=== PATIENT | male | born 1955 | race Caucasian/White ===

== ENCOUNTER 2023-09-21 01:05 | Emergency (ER) | payer BC ==
[2023-09-21] MEDS ORDERED: Magnesium Citrate Solution 296 ML Bottle PO ONE (02:37)
== END 2023-09-21 02:51 | disposition home or self-care (01) ==
LOC: JD.ED 01:05
DX: K59.09 Other constipation (principal); Z88.6 Allergy status to analgesic agent
CPT/HCPCS: 74018; 74018-26; 99283

== ENCOUNTER 2024-06-10 02:27 | Day surgery (SDC) | payer OTHER, MEDICARE ==
[2024-06-10 03:38] LABS: BASOPHILS ABSOLUTE AUTO 0.1 K/mm3 (0.0-0.2); BASOPHILS PERCENT AUTO 0.6 % (0.0-1.0); EOSINOPHILS ABSOLUTE AUTO 0.2 K/mm3 (0.0-0.4); EOSINOPHILS PERCENT AUTO 2.5 % (0.0-6.0); HEMATOCRIT 48.4 % (42.0-52.0); IMMATURE GRAN ABSOLUTE AUTO 0.03 K/mm3 (0.00-0.05); IMMATURE GRAN PERCENT AUTO 0.3 % (0.0-0.4); LYMPHOCYTES ABSOLUTE AUTO 2.1 K/mm3 (1.0-4.8); LYMPHOCYTES PERCENT AUTO 21.3 % (24.0-44.0); MEAN CORPUSCULAR HEMOGLOBIN 31.6 pg (28.0-32.0); MEAN CORPUSCULAR HGB CONC 33.1 g/dl (32.0-36.0); MEAN CORPUSCULAR VOLUME 95.5 fl (83.0-99.0); MONOCYTES ABSOLUTE AUTO 0.9 K/mm3 (0.0-0.8); MONOCYTES PERCENT AUTO 8.8 % (0.0-8.0); NEUTROPHILS ABSOLUTE AUTO 6.5 K/mm3 (1.8-7.7); NEUTROPHILS PERCENT AUTO 66.5 % (41.0-71.0); PLATELET COUNT,PLT 260 K/mm3 (150-400); RED BLOOD CELL COUNT 5.07 M/mm3 (4.52-5.90); WHITE BLOOD CELL COUNT,WBC 9.78 K/mm3 (3.9-11.3)
[2024-06-10 03:39] LABS: APPEARANCE,URINE CLEAR (Clear); BILIRUBIN,URINE NEGATIVE (Negative); COLOR,URINE YELLOW (Yellow); GLUCOSE,URINE 2+ (Negative); KETONES,URINE NEGATIVE (Negative); LEUKOCYTE ESTERASE,URINE NEGATIVE (Negative); NITRITE,URINE NEGATIVE (Negative); OCCULT BLOOD,URINE TRACE-INTACT (Negative); PH,URINE 6.5 (5.0-8.0); PROTEIN,URINE 1+ (Negative); UROBILINOGEN,URINE 0.2 (0.2-1.0)
[2024-06-10] MEDS: Sodium Chloride 0.9% 10 ML Syringe FLUSH PRN (03:40)
[2024-06-10] MEDS: Sodium Chloride 0.9% 1,000 ML IV ONE (03:40)
[2024-06-10] MEDS: Pantoprazole 40 MG Vial IVPUSH ONE (03:41)
[2024-06-10 03:59] LABS: A/G RATIO 1.2 (1-2); ALBUMIN 3.8 g/dl (3.4-5.0); ANION GAP 14.8 (5-15); BILIRUBIN TOTAL 0.3 mg/dL (0.2-1.0); CALCIUM 8.7 mg/dL (8.5-10.1); CREATININE 0.8 mg/dL (0.7-1.3); EST CRCL DRUG DOSING (CG) 83.13 mL/min; POTASSIUM,K 3.8 mEq/L (3.5-5.1); PROTEIN TOTAL,TP 7.1 g/dl (6.4-8.2)
[2024-06-10 04:16] LABS: BACTERIA,URINE NOT SEEN /hpf (FEW); EPITHELIAL CELLS,URINE NOT SEEN /hpf (0-5); MUCUS,URINE NOT SEEN /hpf (FEW); RBC,URINE 0-5 /hpf (0-5); WBC,URINE 0-5 /hpf (0-5)
[2024-06-10] MEDS: Sodium Chloride 0.9% 1,000 ML IV SCH (05:59)
[2024-06-10] MEDS: Piperacillin/Tazobactam 4.5 GM in Water For Injection, Sterile 20 ML IV ONE (06:01)
[2024-06-10] MEDS: Piperacillin/Tazobactam 4.5 GM in Sodium Chloride 0.9% 100 ML IV ONE (06:05)
[2024-06-10] MEDS ORDERED: Propofol 200 MG/20 ML SDV ONE (07:34)
[2024-06-10] MEDS ORDERED: fentaNYL 250 MCG/5 ML SDV ONE (07:34)
[2024-06-10] MEDS ORDERED: Midazolam 1 MG/ML 2 ML SDV ONE (07:34)
[2024-06-10] MEDS ORDERED: ceFAZolin 2 GM Vial ONE (07:35)
[2024-06-10] MEDS ORDERED: Sugammadex Sodium 200 MG/2 ML VIAL IV ONE (07:35)
[2024-06-10] MEDS ORDERED: Ketorolac 30 MG/ML SDV ONE (07:35)
[2024-06-10] MEDS ORDERED: Dexamethasone 4 MG/ML 5 ML MDV ONE (07:35)
[2024-06-10] MEDS ORDERED: Ondansetron 4 MG/2 ML SDV ONE (07:35)
[2024-06-10] MEDS ORDERED: Rocuronium 50 MG/5 ML Vial ONE ×2 (07:35→10:48)
[2024-06-10] MEDS ORDERED: Lidocaine 1% 5 ML VIAL ONE (07:35)
[2024-06-10] MEDS ORDERED: HYDROmorphone 0.5 MG/0.5 ML Syringe IVPUSH PRN (08:38)
[2024-06-10] MEDS ORDERED: Sodium Chloride 0.9% 10 ML Syringe FLUSH PRN (08:38)
[2024-06-10] MEDS ORDERED: Lactated Ringers 1,000 ML IV SCH (08:45)
[2024-06-10] MEDS ORDERED: Esmolol 100 MG/10 ML SDV ONE (10:10)
[2024-06-10] MEDS ORDERED: Lactated Ringers 1,000 ML IV ONE (10:29)
[2024-06-10] MEDS: Bupivacaine 0.5% 30 ML SDV ONE (11:31)
[2024-06-10] MEDS: EPINEPHrine 1 MG/ML SDV ONE (11:31)
[2024-06-10] MEDS: fentaNYL 100 MCG/2 ML SDV IVPUSH PRN (12:42)
[2024-06-10] MEDS: oxyCODONE 5 MG Tab PO PRN (13:25)
[2024-06-10] MEDS: Ondansetron 4 MG/2 ML SDV IVPUSH PRN (14:34)
== END 2024-06-10 15:30 ==
LOC: JD.ED 02:27 → JD.SDS 10:28
PROVIDERS: ATTEND Surgery
DX: K80.12 Calculus of gallbladder with acute and chronic cholecystitis without obstruction (principal); I11.0 Hypertensive heart disease with heart failure; I50.9 Heart failure, unspecified; E78.00 Pure hypercholesterolemia, unspecified; E11.9 Type 2 diabetes mellitus without complications; Z79.82 Long term (current) use of aspirin; Z79.84 Long term (current) use of oral hypoglycemic drugs; Z79.899 Other long term (current) drug therapy; Z88.8 Allergy status to other drugs, medicaments and biological substances
CPT/HCPCS: 36415; 47562; 76705; 80053; 81001; 83690; 85025; 96361; 96374; 96375; 99285; A9270; J0171; J0665; J0690; J1100; J2250; J2405; J2470; J2543; J2704; J3010; J3490; J7030; J7120; 00790; 99100; 99284; J1885

== ENCOUNTER 2025-04-19 19:47 | Emergency (ER) | payer OTHER | END 2025-04-19 21:05 | disposition home or self-care (01) | LOC: JD.ED 19:47 | DX: M79.89 Other specified soft tissue disorders (principal); Z47.1 Aftercare following joint replacement surgery; E78.00 Pure hypercholesterolemia, unspecified; I50.9 Heart failure, unspecified; E11.9 Type 2 diabetes mellitus without complications; Z88.8 Allergy status to other drugs, medicaments and biological substances; Z79.899 Other long term (current) drug therapy; Z79.82 Long term (current) use of aspirin; Z86.16 Personal history of COVID-19 | CPT/HCPCS: 99282; 99283 ==

== ENCOUNTER 2025-04-30 13:53 | Emergency (ER) | payer OTHER ==
[2025-04-30] MEDS ORDERED: Sodium Chloride 0.9% 10 ML Syringe FLUSH PRN (14:16)
[2025-04-30 15:11] LABS: BASOPHILS ABSOLUTE AUTO 0.1 K/mm3 (0.0-0.2); BASOPHILS PERCENT AUTO 0.9 % (0.0-1.0); EOSINOPHILS ABSOLUTE AUTO 0.7 K/mm3 (0.0-0.4); EOSINOPHILS PERCENT AUTO 7.0 % (0.0-6.0); IMMATURE GRAN ABSOLUTE AUTO 0.05 K/mm3 (0.00-0.05); IMMATURE GRAN PERCENT AUTO 0.5 % (0.0-0.4); LYMPHOCYTES ABSOLUTE AUTO 1.9 K/mm3 (1.0-4.8); LYMPHOCYTES PERCENT AUTO 19.9 % (24.0-44.0); MEAN PLATELET VOLUME 9.5 fl (9.4-12.4); MONOCYTES ABSOLUTE AUTO 0.7 K/mm3 (0.0-0.8); MONOCYTES PERCENT AUTO 7.6 % (0.0-8.0); NEUTROPHILS ABSOLUTE AUTO 6.3 K/mm3 (1.8-7.7); NEUTROPHILS PERCENT AUTO 64.1 % (41.0-71.0); NRBC ABSOLUTE 0.00 (0.00-0.02); NRBC PERCENT 0.0 % (0.0-0.2); PLATELET COUNT,PLT 418 K/mm3 (150-400); RED BLOOD CELL COUNT 4.82 M/mm3 (4.52-5.90); WHITE BLOOD CELL COUNT,WBC 9.77 K/mm3 (3.9-11.3)
[2025-04-30 15:30] LABS: INR 1.06
[2025-04-30 15:32] LABS: PTT,PARTIAL THROMBOPLSTIN TIME 27.1 SECONDS (21.7-31.4)
[2025-04-30 16:14] LABS: A/G RATIO 0.9 (1-2); ALANINE AMINOTRANSFERASE,ALT 51.0 U/L (16-63); ASPARTATE AMNIOTRANSFERASE,AST 26.0 U/L (15-37); BILIRUBIN TOTAL 0.2 mg/dL (0.2-1.0); BLOOD UREA NITROGEN,BUN 19.0 mg/dL (7-18); CARBON DIOXIDE,CO2 26.0 mEq/L (21-32); CHLORIDE,CL 101.0 mEq/L (98-107); CREATININE 0.7 mg/dL (0.7-1.3); EST CRCL DRUG DOSING (CG) 96.79 mL/min; ESTIMATED GFR 99.0 mL/min (>60); GLUCOSE RANDOM 102.0 mg/dL (70-99); POTASSIUM,K 3.8 mEq/L (3.5-5.1); PROTEIN TOTAL,TP 7.3 g/dl (6.4-8.2); SODIUM,NA 138.0 mEq/L (136-145)
== END 2025-04-30 16:40 | disposition home or self-care (01) ==
LOC: JD.ED 13:53
DX: Z48.01 Encounter for change or removal of surgical wound dressing (principal); E78.00 Pure hypercholesterolemia, unspecified; E11.9 Type 2 diabetes mellitus without complications; Z88.8 Allergy status to other drugs, medicaments and biological substances; Z79.82 Long term (current) use of aspirin; Z79.899 Other long term (current) drug therapy; Z79.84 Long term (current) use of oral hypoglycemic drugs; Z86.16 Personal history of COVID-19
CPT/HCPCS: 36415; 80053; 85025; 85610; 85730; 99283